=== PATIENT | male | born 1970 | race Caucasian/White ===

== ENCOUNTER 2018-07-19 08:57 | Emergency (ER) | payer BC, OTHER ==
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
== END 2018-07-19 11:07 | disposition home or self-care (01) ==
LOC: SCSER 08:57
DX: T14.8XXA Other injury of unspecified body region, initial encounter (principal); V43.62XA Car passenger injured in collision with other type car in traffic accident, initial encounter
CPT/HCPCS: 72125

== ENCOUNTER 2021-12-17 09:19 | Outpatient (CLI) | payer BC | END 2021-12-17 09:20 | disposition home or self-care (01) | LOC: ULT 09:19 | PROVIDERS: ATTEND Family Medicine | DX: Z82.49 Family history of ischemic heart disease and other diseases of the circulatory system (principal) | CPT/HCPCS: 76775 ==